=== PATIENT | male | born 1985 | race Caucasian/White ===

== ENCOUNTER 2019-06-20 16:21 | Outpatient (REF) | payer MEDICAID, SELFPAY ==
--- NOTE | 2019-06-20 15:15 | PAPNONF_PTH ---
PATIENT: Randy Nicole LOC: [facility] U#:[id number] AGE/SX: 33/M ROOM: RE06/20/[address]: John Guadarrama : 1985 BED: DIS: 06/20/2019 SPEC #: [id number] RECD: 06/21/19 17:47 STATUS: ENT REQ #: [id number] LOPEZ: 06/20/19 15:[address]: John Guadarrama DEPT[facility] Cytology RECD BY: Nehal Whelan Tissues: 1 - BODY FLUID CYTO(SPUTUM/URINE)[facility] Procedures: BODY FLUID CYTO(URINE/SPUTUM) Comments: Case canceled per Dr Guadarrama at [place] / Dr Diaz (TOTAL VOLUME = 45 ml's) (45 ml's URINE & 45 ml's CYTOLYT ADDED)
[2019-06-20 19:08] LABS: HCT 41.1 % (40.0-50.0); HGB 14.3 g/dL (13.5-17.5); Mean Corp. HGB Concentration 34.8 g/dL (32.0-36.0); Mean Corpuscular Hemoglobin 31.9 pg (27.0-33.0); Mean Corpuscular Volume 91.7 fL (80-95); Mean Platelet Volume 11.1 fL (8.0-11.0); Platelet Count 159 x1000/uL (130-400); RBC 4.48 m/cumm (4.50-6.00); RBC Distribution Width 13.2 % (11.8-14.1); White Blood Cell Count 8.08 k/cumm (4.4-10.8)
[2019-06-20 19:18] LABS: Bacteria Few HPF (Negative); C & S Indicated? No/Sq. Contamination; Crystals Many Amorphous HPF (Negative); Epithelial Cells Moderate HPF (Negative); Mucus Trace (Negative)
[2019-06-20 19:19] LABS: Casts 3-5 Coarse Granular LPF (Negative)
[2019-06-20 19:19] LABS: ALT 30 U/L (12-78); AST 20 U/L (15-37); Albumin 3.5 g/dL (3.4-5.0); Alkaline Phosphatase 70 U/L (46-116); Anion Gap 10.7 mmol/L (3-11); BUN 16 mg/dL (7-18); Bilirubin, Total 0.5 mg/dL (0.2-1.0); CO2 27.3 mmol/L (21.0-32.0); Calcium 8.7 mg/dL (8.5-10.1); Chloride 101 mmol/L (98-107); Glucose 92 mg/dL (70-100); Sodium 139 mmol/L (136-145); Total Protein 7.1 g/dL (6.4-8.2)
[2019-06-20 19:22] LABS: COMMENT (LAB VIEW ONLY) 302.32 mg/dL; PROTEIN 307.5 mg/dL; Prot/Crea Ur Ratio 1.01
== END 2019-06-20 16:41 ==
LOC: NCHCN 16:21
PROVIDERS: PCP Internal Medicine; Visit Provider Internal Medicine
DX: J18.9 Pneumonia, unspecified organism (principal); R31.0 Gross hematuria
CPT/HCPCS: 80053; 85027; 81015; 82565; 84156; 88104

== ENCOUNTER 2020-05-31 11:51 | Outpatient (REF) | payer MEDICAID, SELFPAY ==
[2020-05-31 20:07] LABS: Bilirubin Negative (Negative); Blood Moderate (Negative); Clarity Clear (Clear); Glucose Negative (Negative); Ketones Negative (Negative); Leukocyte Esterase Negative (Negative); Nitrite Negative (Negative); Specific Gravity 1.025 (1.005-1.025); Urobilinogen 0.2 EU/dL (Up TO 0.2)
[2020-05-31 20:17] LABS: CREATININE 0.86 mg/dL (0.70-1.30); Calculated LDL 139 mg/dL (<100); Cholesterol 211 mg/dL (<200); HDL Cholesterol 35 mg/dL (40-60); Triglyceride 186 mg/dL (<150)
[2020-05-31 20:20] LABS: Bacteria Negative HPF (Negative); C & S Indicated? No; Crystals Negative HPF (Negative); Epithelial Cells Negative HPF (Negative); Mucus Moderate (Negative); RBC 20-50 HPF (0-2); WBC 0-2 HPF (0-5)
[2020-05-31 20:21] LABS: PROTEIN 69.4 mg/dL
[2020-05-31 20:44] LABS: COMMENT (LAB VIEW ONLY) 209.28 mg/dL; Prot/Crea Ur Ratio 0.33
== END 2020-05-31 12:11 ==
LOC: NCHCN 11:51
PROVIDERS: PCP Internal Medicine; Visit Provider Internal Medicine
DX: R31.0 Gross hematuria (principal)
CPT/HCPCS: 80061; 81003; 81015; 82565; 84156

== ENCOUNTER 2023-12-28 15:40 | Outpatient (REF) | payer MEDICAID, SELFPAY ==
[2023-12-28 19:14] LABS: Abs Immature Grans 0.05 10^3/uL (0.0-0.06); Absolute Basophil Count 0.06 10^3/uL (0.0-0.2); Absolute Eosinophil Count 0.25 10^3/uL (0.0-0.7); Absolute Lymphocyte Count 1.92 10^3/uL (1.2-3.4); Absolute Monocyte Count 0.45 10^3/uL (0.1-0.8); Absolute Neutrophil Count 4.18 10^3/uL (1.2-6.7); Basophils % 0.9; Eosinophils % 3.6; HCT 51.2 % (40.0-50.0); HGB 17.7 g/dL (13.5-17.5); Immature Grans % 0.7; Lymphocytes % 27.8; MCH 31.3 pg (27.0-33.0); MCHC 34.6 % (32.0-36.0); MCV 91 fL (80-95); MPV 10.3 fL (8.0-11.0); Monocytes % 6.5; Neutrophils % 60.5; Platelet Count 205 10^3/uL (130-400); RBC 5.66 10^6/uL (4.36-5.78); RDW 12.5 % (11.8-14.1); RDW-SD 41.7 fL; WBC 6.91 10^3/uL (4.4-10.8)
[2023-12-28 19:33] LABS: ALT 49 U/L (16-63); AST 34 U/L (15-37); Albumin 3.5 g/dL (3.4-5.0); Alkaline Phosphatase 86 U/L (46-116); Anion Gap 8.5 mmol/L (3-11); BUN 21 mg/dL (7-18); Bilirubin, Total 0.3 mg/dL (0.2-1.0); CO2 28.5 mmol/L (21.0-32.0); CREATININE 0.9 mg/dL (0.70-1.30); Calcium 8.9 mg/dL (8.5-10.1); Chloride 105 mmol/L (98-107); Estimated GFR 112.11 (mL/min/1.73m2); Glucose 94 mg/dL (74-106); Potassium 4.1 mmol/L (3.5-5.1); Sodium 142 mmol/L (136-145); Total Protein 7.8 g/dL (6.4-8.2)
[2023-12-28 19:41] LABS: COMMENT (LAB VIEW ONLY) 103.98 mg/dL; PROTEIN 61.8 mg/dL; Prot/Crea Ur Ratio 0.59
[2023-12-28 19:48] LABS: Calculated LDL 137 mg/dL (<100); Cholesterol 199 mg/dL (<200); HDL Cholesterol 37 mg/dL (40-60); Triglyceride 125 mg/dL (<150)
[2023-12-28 19:57] LABS: Bilirubin Negative (Negative); Blood Moderate (Negative); Clarity Clear (Clear); Glucose Negative (Negative); Ketones Negative (Negative); Leukocyte Esterase Negative (Negative); Nitrite Negative (Negative); Specific Gravity 1.025 (1.005-1.025); Urobilinogen 0.2 mg/dL (Up to 0.2); pH 5.5 (5-8)
[2023-12-28 20:06] LABS: Bacteria Negative HPF (Negative); C & S Indicated? No; Casts Negative LPF (Negative); Crystals Negative HPF (Negative); Epithelial Cells Rare HPF (Negative); Mucus Negative (Negative); WBC 0-2 HPF (0-5)
[2023-12-29 18:45] LABS: Hepatitis C Ab w Rflx HCV PCR Negative (Negative)
[2023-12-29 18:48] LABS: HIV-1/2 Ag & Ab Screen Negative (Negative)
== END 2023-12-28 15:41 | disposition home or self-care (01) ==
LOC: NCHCN 15:40
PROVIDERS: PCP Internal Medicine; Visit Provider Physician Assistant
DX: Z11.59 Encounter for screening for other viral diseases (principal); R31.0 Gross hematuria; E78.5 Hyperlipidemia, unspecified; Z11.4 Encounter for screening for human immunodeficiency virus [HIV]
CPT/HCPCS: 80053; 80061; 86803; 87389; 81003; 81015; 82565; 84156; 85025